=== PATIENT | female | born 1960 | race Caucasian/White ===

== ENCOUNTER 2023-01-16 10:44 | Emergency (ER) | payer OTHER ==
[~2023-01-16] VITALS: Ht 165 cm; Wt 105.0 kg
[2023-01-16] MEDS ORDERED: ONDANSETRON INJECTION 4 MG/2 ML (SDV) IVP STA (10:58)
[2023-01-16] MEDS ORDERED: fentaNYL INJECTION 100 MCG/2 ML VIAL IVP STA ×2 (10:58→11:39)
--- NOTE | 2023-01-16 11:12 | ED Upper Extremity ---
General Chief Complaint: Upper Extremity Stated Complaint: LT ARM/WRIST PAIN/INJ Nursing Triage Note: Patient has presented to ER with cc of left wrist pain - she fell going back into work - she just tripped walking back inside. Source: patient History of Present Illness Date Seen by Provider: Jan 16, 2023 Time Seen by Provider: 10:46 Initial Comments 62-year-old female presenting with complaints of left wrist pain after a fall. She states she was walking back into work and she tripped. She is right-hand dominant. She complains of pain to the left wrist and has a deformity. She is neurovascularly intact. She denies hitting her head or getting knocked out. She does have abrasions to her left knee. She was able to pull herself back up after the fall and was walking without difficulty. She states that she last ate around 7 or 8 this morning for breakfast. She denies any allergies to medications and states the only other medicine she is taking prescription mcconnell is Skyrizi for psoriasis. She follows with GAVIN Mcgarry and Dr. Weeks. Onset: just prior to arrival Severity: severe Pain/Injury Location: left wrist Method of Injury: fell Modifying Factors: Worse With Movement Allergies and Home Medications Allergies Coded Allergies: No Known Drug Allergies (Unverified , 01/16/23) Patient Home Medication List Home Medication List Reviewed: Yes Hydrocodone/Acetaminophen (Hydrocodone-Acetamin 5-325 mg) 5 Mg-325 Mg Tablet, 1 TAB PO Q4H PRN for PAIN SEVERE Prescribed by: MARILIN BLACKMAN on 01/16/23 1131 Ondansetron (Ondansetron Odt) 4 Mg Tab.rapdis, 4 MG PO Q6H PRN for NAUSEA/VOMITING Prescribed by: MARILIN BLACKMAN on 01/16/23 1231 Review of Systems Constitutional: No chills, No dizziness, No fever EENTM: No blurred vision, No vision loss Respiratory: no symptoms reported Cardiovascular: no symptoms reported Gastrointestinal: no symptoms reported Genitourinary: no symptoms reported Musculoskeletal: see HPI Skin: No change in color Psychiatric/Neurological: Denies Numbness, Denies Paresthesia Past Ztkcrsv-Lkyjhh-Ziwmsa Hx Patient Social History Tobacco Use?: No Use of E-Cig and/or Vaping dev: No Alcohol Use?: No Past Medical History Surgery/Hospitalization HX: Psoriasis Physical Exam Vital Signs Vital Signs - First Documented 01/16/23 10:54 Temp 35.8 Pulse 81 Resp 22 B/P (MAP) 157/88 (111) Pulse Ox 97 O2 Delivery Room Air Capillary Refill : Height, Weight, BMI Height: '" Weight: lbs. oz. 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 Then a stockinette was applied to the left upper extremity to help protect the skin. Additional cotton roll padding was applied to help protect the wrist and the elbow especially. Then using OCL splint material the sugar-tong splint was applied to help stabilize the fractures. After the splint was applied and secured with an Vidal wrap I applied some direct pressure to try and help with alignment. With that involving both the radius and the ulna and having an intra-articular extension she ultimately will likely need orthopedics to do surgery to fully stabilize and position the fragments. She tolerated the splinting and attempted reduction relatively well without any immediate complication. She is neurovascularly and tendon intact both pre and post splinting and reduction attempt. Post reduction x-rays show some improvement in the alignment on the lateral film but minimal to no significant improvement with the AP film. Given phone numbers for multiple orthopedic providers to try and get in with but ultimately she needs to check with work comp to find out if they have a specific provider she needs to go see. Reduction Attempts: 1 Pre-Procedure NV Exam: Yes post joint reduction film: joint not reduced Vidal wrap: Yes Arm Sling: Large Hand-Made Type: orthoglass (Sugartong splint Left wrist/forearm) Splint Application: Short Arm Progress/Results/Core Measures Results/Orders My Orders Orders - MARILIN BLACKMAN MD Ed Iv/Invasive Line Start (01/16/23 10:58) Fentanyl Injection (Fentanyl Injection (01/16/23 10:58) Ondansetron Injection (Ondansetron Inj (01/16/23 10:58) Ice: Apply To Affected Area (01/16/23 10:59) Elevate Affected Extremity (01/16/23 10:59) Wrist 3 View Left (01/16/23 10:59) Forearm 2 View Left (01/16/23 10:59) Fentanyl Injection (Fentanyl Injection (01/16/23 11:39) Ed Ortho/Other Supplies Order (01/16/23 11:39) Ortho Glass (01/16/23 11:39) Orthopedic Equiment (01/16/23 11:39) Fentanyl Injection (Fentanyl Injection (01/16/23 12:15) Wrist 2 View Left (01/16/23 11:40) Medications Given in ED Current Medications Medications Dose Ordered Sig/Janak Route Start Time Stop Time Status Last Admin Dose Admin Fentanyl Citrate 50 mcg ONCE ONCE IVP 01/16/23 12:15 01/16/23 12:16 DC 01/16/23 12:00 50 MCG Vital Signs/I&O 01/16/23 01/16/23 10:54 12:18 Temp 35.8 Pulse 81 68 Resp 22 18 B/P (MAP) 157/88 (111) 149/83 Pulse Ox 97 98 O2 Delivery Room Air Room Air Blood Pressure Mean: 111 Progress Progress Note #1: Progress Note Potential diagnosis of wrist fracture, forearm fracture, dislocated wrist, distal radius fracture distal ulna fracture. Establish peripheral IV access and administer fentanyl 50 mcg IV for pain, Zofran 4 mg IV to prevent nausea and vomiting from the narcotic and pain. Ice and elevate the left wrist and forearm to help with pain and swelling. X-rays to look for acute bony abnormality. On my personal interpretation and review of 3 view films of left wrist and 2 view films left forearm I see displaced angulated fracture of distal radius and ulna with intra-articular extension on radius portion of fracture. I did not appreciate any proximal fractures on forearm. Progress Note #2: Progress Note Counseled patient on the findings of the x-rays that she has distal radius and ulna fracture as well as intra-articular extension and appears unstable where she likely will need surgery from orthopedics to help stabilize it. Although I attempted to reduce and improve alignment with the splinting, based on my personal interpretation and review of post reduction films of left wrist, I was only partially successful. She is neurovascularly intact and has some improvement in pain now that it is stabilized with the splint and sling for support. Counseled to check with HR and Work Comp to see what Orthopedic provider they want her to go see. Given numbers and names for GAVIN Luke, Dr. Recinos and Dr. Blackman as well as number for [facility]. Discharged with prescription for hydrocodone for severe pain as well as Zofran to help with nausea from the pain medicine. Encouraged to take with food. Try to stay well-hydrated and keep the arm elevated is much as possible. Follow-up with orthopedics as soon as possible once she finds out who they are referring her to from work comp. Counseled on follow-up and return precautions especially regarding the splint and her nerves and circulation. Advised to watch for change in color or loss of capillary refill on the fingers and if she is having numbness or increasing pain to try to loosen the Vidal bandages and then rewrap the splint if this still is not helping she would need to be seen again. Diagnostic Imaging Diagonstic Imaging: Xray Plain Films/CT/US/NM/MRI: forearm Reviewed: Reviewed by Me Diagonstic Imaging: Xray Plain Films/CT/US/NM/MRI: other (wrist) Reviewed: Reviewed by Me Diagonstic Imaging: Xray Plain Films/CT/US/NM/MRI: other (wrist) Reviewed: Reviewed by Me Departure Impression Primary Impression: Traumatic closed displaced fracture of distal end of left radius and ulna Qualified Codes: S52.502A - Unspecified fracture of the lower end of left radius, initial encounter for closed fracture; S52.602A - Unspecified fracture of lower end of left ulna, initial encounter for closed fracture Additional Impression: Fall Qualified Codes: W19.XXXA - Unspecified fall, initial encounter Disposition: 01 HOME, SELF-CARE Condition: Stable Departure-Patient Inst. Decision time for Depature: 12:31 Referrals: ARMAAN MCGARRY APRN (PCP) Primary Care Physician FANNIE WEEKS MD (Family) Primary Care Physician RIO LUKE JUSTIN S MD ZAFUTA, MICHAEL P MD Patient Instructions: Forearm and Wrist Fractures ED, Preventing Falls ED, Cast Care ED Add. Discharge Instructions: Keep splint clean and dry and intact. The fracture is not stable and will not stay in good position until you can get surgery to fix the pieces in place. Follow-up with orthopedics within the next week to 10 days. Check with work comp to see if they have a specific orthopedic provider they want you to see otherwise I have listed the orthopedic providers available through [facility] and that come to clinic here in [place]. [facility] is another option for follow up with Orthopedics and may be able to see you sooner than the local providers since they are a larger group of providers. Their website is [email or web address] and phone number [phone] You will have to see who the Workman's Compensation people want you to go see for Orthopedics care. Try to keep your wrist and forearm elevated above heart level as much as possible to help with pain, swelling, throbbing. You may still apply ice 15 to 20 minutes every few hours as needed to help with pain and swelling. Use the hydrocodone/acetaminophen 5/325 for severe pain. This is a narcotic and can cause constipation so consider taking MiraLAX or a stimulant laxative along with that to help prevent constipation. It is best to take with food as it can upset your stomach as well. Use the dissolving nausea tablets if needed to help with nausea. Check back with your primary care provider or work comp clinic as directed for continued care as well. All discharge instructions reviewed with patient and/or family. Voiced understanding. Scripts Ondansetron (Ondansetron Odt) 4 Mg Tab.rapdis 4 MG PO Q6H PRN for NAUSEA/VOMITING for 5 Days, #20 TAB 0 Refills Prov: MARILIN BLACKMAN MD 01/16/23 Hydrocodone/Acetaminophen (Hydrocodone-Acetamin 5-325 mg) 5 Mg-325 Mg Tablet 1 TAB PO Q4H PRN for PAIN SEVERE for 5 Days, #30 TAB 0 Refills Prov: MARILIN BLACKMAN MD 01/16/23 MARILIN BLACKMAN MD Jan 16, 2023 11:12
[2023-01-16] MEDS ORDERED: ACHD5005 PO (11:24)
[2023-01-16] MEDS ORDERED: fentaNYL INJECTION 100 MCG/2 ML VIAL IVP ONE (12:15)
[2023-01-16 12:18] VITALS: BP 149/83
[2023-01-16] MEDS ORDERED: ONDA4TAB11 PO (12:31)
--- NOTE | 2023-01-16 13:24 | Diagnostic Imaging Report ---
INDICATION: Fall with left wrist pain. Time of Exam: 11:05 AM 3 views of the left wrist demonstrate a severely comminuted fracture of the distal radius which shows volar and radial displacement of the distal fracture fragment. Fracture lines do extend to the articular surface. There is some impaction present. There is also a fracture of the distal ulna which show some slight radial displacement and radial annulation of the distal fracture fragment. There appears to be an old ununited ulnar styloid fracture as well. Carpus and metacarpals are intact. IMPRESSION: Displaced and angulated distal radius and ulnar fractures, as described. Dictated by: Dictated on workstation # [id number]
--- NOTE | 2023-01-16 13:25 | Diagnostic Imaging Report ---
INDICATION: Fall and left arm pain. TIME OF EXAM: 11:07 a.m. FINDINGS: Two views of the left forearm again demonstrate severely comminuted impacted intra-articular fracture of the distal radius. There is also fracture of the distal ulna. Alignment at the elbow is normal. The proximal radius and ulna are intact. IMPRESSION: Distal radius and ulnar fractures. Dictated by: Dictated on workstation # [id number]
--- NOTE | 2023-01-16 13:28 | Diagnostic Imaging Report ---
INDICATION: Left wrist fracture, status post reduction. TIME OF EXAM: 12:13 p.m. COMPARISON: Correlation is made with radiographs of the left wrist earlier same day. FINDINGS: There has been placement of an overlying splint. There continues to be a radial displacement of the distal radius fracture fragment. There is comminution and impaction with intra-articular extent. There is also slight radial displacement of the distal ulnar fracture fragment. The anteroposterior alignment has improved. There is no longer significant volar displacement of the distal radius fracture fragment. IMPRESSION: Overall alignment has improved but there does appear to be a moderate radial displacement of the distal fracture fragments. Dictated by: Dictated on workstation # [id number]
== END 2023-01-16 12:40 | disposition home or self-care (01) ==
LOC: ER FS 10:46
DX: S52.502A Unspecified fracture of the lower end of left radius, initial encounter for closed fracture (principal); S52.602A Unspecified fracture of lower end of left ulna, initial encounter for closed fracture; L40.9 Psoriasis, unspecified; E66.9 Obesity, unspecified; Z68.38 Body mass index [BMI] 38.0-38.9, adult; Z79.899 Other long term (current) drug therapy; W01.0XXA Fall on same level from slipping, tripping and stumbling without subsequent striking against object, initial encounter; Y93.01 Activity, walking, marching and hiking; Y92.89 Other specified places as the place of occurrence of the external cause
CPT/HCPCS: 25605; 29105; 73100; 73110